=== PATIENT | female | born 1965 | race Caucasian/White ===

== ENCOUNTER 2017-11-07 06:34 | Inpatient (IN) ==
[2017-11-07] MEDS ORDERED: Vancomycin Inj 1 GM/200 ML PIGGYBACK IV.SIG ONE (06:52)
[2017-11-07] MEDS ORDERED: Piperacil/Tazo 3.375 GM Premix 50 ML IV.SIG ONE (06:52)
[2017-11-07] MEDS ORDERED: Sod Chloride 0.9% Inj 1,000 ML IV.SIG ONE (06:52)
--- NOTE | 2017-11-07 07:49 | ED ---
HPI General Chief complaint: Skin/Abscess/Foreign Body Stated complaint: Hand infection Time Seen by Provider: 11/07/17 07:37 Source: patient Mode of arrival: ambulatory Limitations: no limitations History of Present Illness HPI narrative: 51 y/o female presents after taking care of her dog for completion of her workup. She notes she can now stay in the hospital for antibiotics. She denies new complaints from recent visit. 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) Associated symptoms: denies other symptoms Related Data Home Medications Medication Instructions Recorded Confirmed methadone [Methadose] 110 mg PO DAILY 11/07/17 11/07/17 Allergies Allergy/AdvReac Type Severity Reaction Status Date / Time No Known Allergies Allergy Verified 11/07/17 02:28 Review of Systems ROS: all other systems reviewed are negative [facility] [place] Medical History Medical History Arthritis (Acute) Asthma (Acute) Chronic back pain (Acute) Heroin use (Acute) Surgical History Surgical History History of cholecystectomy (Acute) Social History Social History Substance History: Past History Second Hand Smoke Exposure: Yes Smoking Status: Current every day smoker Tobacco Type: Cigarettes How Often Do You Have a Drink Containing Alcohol: 2 to 4 times a month Recent Travel in [facility] within the Last 8 Weeks: No Recent Out of Country Travel within the Last 8 Weeks: No Immunization History Tetanus Immunization: Unsure Exam Narrative Exam Narrative: GENERAL: 51 y/o female in no apparent distress SKIN: Focused skin assessment warm/dry. HEAD: Atraumatic. Normocephalic. EYES: Pupils equal and round. No scleral icterus. No injection or drainage. ENT: No nasal bleeding or discharge. Mucous membranes pink and moist. NECK: Trachea midline. CARDIOVASCULAR: Regular rate and rhythm. RESPIRATORY: No accessory muscle use. MUSCULOSKELETAL: Pain with palpation of left hand with primrose strain noted with significant swelling, compartments soft. Good capillary refill NEUROLOGICAL: Awake and alert. Motor grossly within normal limits. Normal speech. PSYCHIATRIC: Appropriate mood and affect; insight and judgment normal. Course Reevaluation(s) Reevaluation #1: patient agrees to admit today Consultations Consultation #1: dr denney states keep npo and will see patient, admit to medicine Consultation #2: resident team agreees to admit Initial Documented Vital Signs Temperature 98.1 F 11/07/17 06:41 Pulse Rate 77 11/07/17 06:41 Respiratory Rate 16 11/07/17 06:41 Blood Pressure 109/56 L 11/07/17 06:41 Pulse Oximetry 95 11/07/17 06:41 Last Documented Vital Signs Temperature 98.1 F 11/07/17 06:41 Pulse Rate 61 11/07/17 07:53 Respiratory Rate 20 11/07/17 07:53 Blood Pressure 110/74 11/07/17 07:53 Pulse Oximetry 97 11/07/17 07:53 Medical Decision Making MDM Narrative Medical decision making narrative: Patient recently here in the emergency room with x-ray and I&D and tetanus given. Prior physician wanted patient to stay for blood work and antibiotics but she left before this could be done. This was discussed with prior physician that saw patient Dr. Ventura at change of shift who ordered an initial workup for this visit as well. Will follow workup and admit Medical Screen Exam Complete: Yes Emergency Medical Condition: Yes Differential Diagnosis Differential Diagnosis: cellulitis, abscess, foreign body Lab Data Lab results reviewed: Yes I reviewed the patient's lab results. Result diagrams: 11/07/17 07:40 11/07/17 07:40 Lab Results 11/07/17 11/07/17 11/07/17 Range/Units 07:40 07:40 07:40 WBC 11.8 H (4.0-11.0) th/mm3 RBC 4.66 (4.00-5.30) mil/mm3 Hgb 13.8 (11.6-15.3) gm/dL Hct 41.7 (35.0-46.0) % MCV 89.6 (80.0-100.0) fL MCH 29.7 (27.0-34.0) pg MCHC 33.1 (32.0-36.0) % RDW 13.1 (11.6-17.2) % Plt Count 275 (150-450) th/mm3 MPV 8.5 (7.0-11.0) fL Neut % (Auto) 76.0 H (16.0-70.0) % Lymph % (Auto) 16.3 (9.0-44.0) % Morrow % (Auto) 6.3 (0.0-8.0) % Eos % (Auto) 1.1 (0.0-4.0) % Baso % (Auto) 0.3 (0.0-2.0) % Neut # (Auto) 9.0 H (1.8-7.7) th/mm3 Lymph # (Auto) 1.9 (1.0-4.8) th/mm3 Morrow # (Auto) 0.7 (0.0-0.9) th/mm3 Eos # (Auto) 0.1 (0.0-0.4) th/mm3 Baso # (Auto) 0.0 (0.0-0.2) th/mm3 WBC Differential . Differential Comment Auto diff final PT 9.5 L (9.8-11.6) sec INR 0.9 Ratio APTT 26.9 (24.3-30.1) sec Sodium 137 (136-145) meq/L Potassium 3.5 (3.5-5.1) meq/L Chloride 100 (98-107) meq/L Carbon Dioxide 27.8 (21.0-32.0) meq/L Anion Gap 9 (5-15) meq/L BUN 13 (7-18) mg/dL Creatinine 0.72 (0.50-1.00) mg/dL Estimated GFR 85 L (>89) mL/min Random Glucose 93 (74-106) mg/dL Lactic Acid (0.4-2.0) mmol/L Calcium 8.8 (8.5-10.1) mg/dL Total Bilirubin 0.3 (0.2-1.0) mg/dL AST 14 L (15-37) U/L ALT 19 (10-53) U/L Alkaline Phosphatase 97 (45-117) U/L C-Reactive Protein 1.20 H (0.00-0.30) mg/dL Total Protein 7.5 (6.4-8.2) g/dL Albumin 3.5 (3.4-5.0) g/dL 08/29/18 Range/Units 08:12 WBC (4.0-11.0) th/mm3 RBC (4.00-5.30) mil/mm3 Hgb (11.6-15.3) gm/dL Hct (35.0-46.0) % MCV (80.0-100.0) fL MCH (27.0-34.0) pg MCHC (32.0-36.0) % RDW (11.6-17.2) % Plt Count (150-450) th/mm3 MPV (7.0-11.0) fL Neut % (Auto) (16.0-70.0) % Lymph % (Auto) (9.0-44.0) % Morrow % (Auto) (0.0-8.0) % Eos % (Auto) (0.0-4.0) % Baso % (Auto) (0.0-2.0) % Neut # (Auto) (1.8-7.7) th/mm3 Lymph # (Auto) (1.0-4.8) th/mm3 Morrow # (Auto) (0.0-0.9) th/mm3 Eos # (Auto) (0.0-0.4) th/mm3 Baso # (Auto) (0.0-0.2) th/mm3 WBC Differential Differential Comment PT (9.8-11.6) sec INR Ratio APTT (24.3-30.1) sec Sodium (136-145) meq/L Potassium (3.5-5.1) meq/L Chloride (98-107) meq/L Carbon Dioxide (21.0-32.0) meq/L Anion Gap (5-15) meq/L BUN (7-18) mg/dL Creatinine (0.50-1.00) mg/dL Estimated GFR (>89) mL/min Random Glucose (74-106) mg/dL Lactic Acid 0.8 (0.4-2.0) mmol/L Calcium (8.5-10.1) mg/dL Total Bilirubin (0.2-1.0) mg/dL AST (15-37) U/L ALT (10-53) U/L Alkaline Phosphatase (45-117) U/L C-Reactive Protein (0.00-0.30) mg/dL Total Protein (6.4-8.2) g/dL Albumin (3.4-5.0) g/dL Imaging Data Attestation: I personally reviewed and interpreted this imaging study as follows : Discharge Plan Discharge Disposition Patient Disposition: 30 Still Patient Discharge Condition Condition: Stable Discharge Details Diagnosis: Abscess of hand, left Physicians Team ED Provider: Wendy Odell Primary Care Provider: Primary Care Josey Bates Rxs /Orders / Referrals /Forms Prescriptions: No Action methadone [Methadose] 10 mg/mL Concentrate 110 mg PO DAILY RF: 0 Discharge Instructions Patient Printed Instructions: Incision and Drainage (DC) Discharge Interventions Interventions: Vital Signs Last Done: 11/07/17 07:53 Status ED Status: Pending Admission
[2017-11-07] MEDS ORDERED: Sod Chloride 0.9% Inj 1,000 ML IV.SIG SCH (08:00)
[2017-11-07] MEDS ORDERED: Vancomycin Inj 1,000 MG in Sodium Chlor 0.9% Inj 250 ML IV.SIG ONE (08:00)
[2017-11-07 08:25] LABS: Baso % (Auto) 0.3 % (0.0-2.0); Eos # (Auto) 0.1 th/mm3 (0.0-0.4); Eos % (Auto) 1.1 % (0.0-4.0); Hematocrit 41.7 % (35.0-46.0); Hemoglobin 13.8 gm/dL (11.6-15.3); Lymph # (Auto) 1.9 th/mm3 (1.0-4.8); Lymph % (Auto) 16.3 % (9.0-44.0); Mean Corpuscular HGB Conc 33.1 % (32.0-36.0); Mean Corpuscular Hemoglobin 29.7 pg (27.0-34.0); Mean Corpuscular Volume 89.6 fL (80.0-100.0); Mean Platelet Volume 8.5 fL (7.0-11.0); Mono # (Auto) 0.7 th/mm3 (0.0-0.9); Mono % (Auto) 6.3 % (0.0-8.0); Platelet Count 275 th/mm3 (150-450); Red Blood Count 4.66 mil/mm3 (4.00-5.30); Red Cell Distribution Width 13.1 % (11.6-17.2); White Blood Count 11.8 th/mm3 (4.0-11.0)
[2017-11-07 08:34] LABS: Activated Partial Thrombo Time 26.9 sec (24.3-30.1); INR 0.9 Ratio; Prothrombin Time 9.5 sec (9.8-11.6)
[2017-11-07 08:39] LABS: Albumin 3.5 g/dL (3.4-5.0); Anion Gap 9 meq/L (5-15); Aspartate Aminotransferase 14 U/L (15-37); Blood Urea Nitrogen 13 mg/dL (7-18); Calcium 8.8 mg/dL (8.5-10.1); Carbon Dioxide 27.8 meq/L (21.0-32.0); Chloride 100 meq/L (98-107); Glomerular Filtration Rate 85 mL/min (>89); Glucose,Random 93 mg/dL (74-106); Potassium 3.5 meq/L (3.5-5.1); Sodium 137 meq/L (136-145)
[2017-11-07 08:41] LABS: Alanine Aminotransferase 19 U/L (10-53)
[2017-11-07 08:42] LABS: Alkaline Phosphatase 97 U/L (45-117); Total Protein 7.5 g/dL (6.4-8.2)
[2017-11-07] MEDS ORDERED: Bisacodyl 10 MG Supp RECTAL PRN (09:30)
[2017-11-07] MEDS ORDERED: Acetaminophen 325 MG Tablet PO PRN (09:30)
[2017-11-07] MEDS ORDERED: Sod Chloride 0.9% Inj 1,000 ML IV.CONT SCH (09:30)
[2017-11-07] MEDS ORDERED: Temazepam 15 MG Capsule PO PRN (09:30)
[2017-11-07] MEDS ORDERED: Naloxone Inj 0.4 MG/ML Vial IV.PUSH PRN (09:34)
[2017-11-07] MEDS ORDERED: Morphine Inj 4 MG/ML Vial IV.PUSH PRN (09:34)
[2017-11-07] MEDS ORDERED: Ketorolac Inj 30 MG/ML (IVP) Vial IV.PUSH PRN ×2 (09:34)
--- NOTE | 2017-11-07 10:04 | P.HPFP ---
History of Present Illness Primary Care Physician: No Primary Care Physician <GayatriFredyIdania M - 11/07/17 15:23> No Primary Care Physician <ChrisJimenez Calvo - 11/07/17 10:04> Chief Complaint: Left hand pain <PerezJimenez Calvo - 11/07/17 10:04> History of Present Illness: 51-year-old female with a history of IV drug use presented to the ED for left hand wound. Patient states that on Sunday she was picking [place] berries and had small cuts on her hands and possibly provoked by 1 of the palm leaves. She states that she first noticed a small erythematous wound on the dorsal aspect of her left hand between the thumb and index finger. States that over the next several days the wound grew, became more red and painful and swelling has extended to the wrist. Denies any drainage. She denies any fevers but did have chills 2 days prior to admission. Denies any nausea or vomiting, diarrhea or constipation, chest pain, shortness of breath, headache or blurry vision. She does endorse some numbness in the thumb and index finger, but denies any restriction in range of motion. 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 She has been on methadone 110 mg p.o. daily for the last 5 years. Patient initially came to the ED at 4 in the morning, but after told she is being admitted she went home to arrange for care for her dog and then returned. Blood, wound cultures as well as a hand x-ray was performed at the initial encounter. <Jimenez Perez - 11/07/17 10:04> - Diagnosis (1) Cellulitis and abscess of hand (2) History of intravenous drug abuse (3) Nutrition, metabolism, and development symptoms <Idania Mendieta Curtis - 11/07/17 15:23> (1) Cellulitis and abscess of hand (2) History of intravenous drug abuse (3) Nutrition, metabolism, and development symptoms <PerezJimenez Calvo - 11/07/17 09:37> Inpatient Certification: I certify that the inpatient services were ordered in accordance with Medicare regulations governing the order. This includes certification that hospital inpatient services are reasonable and necessary and in the case of services not specified as inpatient-only under 42 CFR 419.22(n), that they are appropriately provided as inpatient services in accordance to with the 2-midnight benchmark under 43 CFR 412.3(e) <Idania Mendieta [facility] 11/07/17 15:23> I certify that the inpatient services were ordered in accordance with Medicare regulations governing the order. This includes certification that hospital inpatient services are reasonable and necessary and in the case of services not specified as inpatient-only under 42 CFR 419.22(n), that they are appropriately provided as inpatient services in accordance to with the 2-midnight benchmark under 43 CFR 412.3(e) <Jimenez Perez [facility] 11/07/17 10:04> Estimated Total Length of Stay (Days): [facility] Plans for Post Hospital Care: [facility]> Review of Systems Constitutional: Reports chills, Denies fever(s) <[facility] 11/07/17 10:04> Eyes: Denies blurry vision, Denies change in vision <[facility] 10:04> Ears, Nose, Mouth, and Throat: Denies post nasal drip, Denies sore throat < [facility] 11/07/17 10:04> Cardiovascular: Denies chest pain, Denies excessive sweating <[facility] 11/07/17 10:04> Respiratory: Denies shortness of breath, Denies wheezing <[facility] 11/07/17 10:04> Gastrointestinal: Denies abdominal pain, Denies black, tarry stools <[facility] 11/07/17 10:04> Genitourinary: Denies blood in urine, Denies urinary urgency <[facility] 11/07/17 10:04> Skin/Breast: Reports boil, Reports redness <[facility] 11/07/17 10:04> Neurologic: Denies dizziness, Denies localized weakness <[facility] 10:04> Hematologic/Lymphatic: Denies easy bleeding, Denies easy bruising <[facility] 11/07/17 10:04> PMFSH - History History Provided By: [facility] 10:04> - Medical History Medical History: Medical History (Last Reviewed 11/07/17 @ 09:46 by Jimenez Perez MD, R2) Arthritis Asthma Chronic back pain Heroin use <Idania Mendieta 11/07/17 15:23> Medical History (Last Reviewed 11/07/17 @ 09:46 by Jimenez Perez MD, R2) Arthritis Asthma Chronic back pain Heroin use <Jimenez Perez 11/07/17 10:04> - Surgical History Surgical History: Surgical History (Last Reviewed 11/07/17 @ 09:46 by Jimenez Perez MD, R2) History of cholecystectomy <Idania Mendieta 11/07/17 15:23> Surgical History (Last Reviewed 11/07/17 @ 09:46 by Jimenez Perez MD, R2) History of cholecystectomy <Jimenez Perez 11/07/17 10:04> - Tobacco History Second Hand Smoke Exposure: Yes <Jimenez Perez 11/07/17 10:04> Tobacco Use In Past 30 Days: Yes <Jimenez Perez 11/07/17 10:04> Smoking Status: Current every day smoker <Jimenez Perez 11/07/17 10:04> Tobacco Type: Cigarettes <Jimenez Perez 11/07/17 10:04> - Alcohol History How Often Do You Have a Drink Containing Alcohol: 2 to 4 times a month <Jimenez Perez 11/07/17 10:04> - Substance Use History Substance History: Past History <Jimenez Perez 11/07/17 10:04> - Travel History Recent Travel in the [facility] Within the Last 8 Weeks: No <Jimenez Perez 11/07 10:04> Recent Travel Out of the Country Within the Last 8 Weeks: No <Jimenez Perez 11/07/17 10:04> - Immunization History Tetanus Immunization: Unsure <Jimenez Perez 11/07/17 10:04> Medications and Allergies Allergies Allergy/AdvReac Type Severity Reaction Status Date / Time No Known Allergies Allergy Verified 11/07/17 02:28 <Idania Mendieta 11/07/17 15:23> Home Medications Medication Instructions Recorded Confirmed Type methadone [Methadose] 110 mg PO DAILY 11/07/17 11/07/17 History <Idania Mendieta 11/07/17 15:23> Active Medications: Active Medications Acetaminophen (Tylenol) 650 mg PO Q4H PRN PRN Reason: Temp > 100.4 Al Hydroxide/Mg Hydroxide (Milk Of Magnesia Liq) 30 ml PO Q12H PRN PRN Reason: Mild Constipation Bisacodyl (Dulcolax Supp) 10 mg RECTAL DAILY PRN PRN Reason: SEVERE CONSITIPATION Sodium Chloride (Ns Inj) 1,000 mls @ 0 mls/hr IV.SIG BOLUS [facility] Last Infusion: 11/07/17 09:45 Dose: Infused Sodium Chloride (Ns Inj) 1,000 mls @ 100 mls/hr IV.CONT .Q10H [facility] Last Admin: 11/07/17 11:22 Dose: Not Given Ketorolac Tromethamine (Toradol Inj) 30 mg IV.PUSH Q6H PRN PRN Reason: PAIN 6-10;IF UNABLE TO TAKE PO Stop: 11/12/17 09:33 Ketorolac Tromethamine (Toradol Inj) 15 mg IV.PUSH Q6H PRN PRN Reason: PAIN 3-5; IF UABLE TO TAKE PO Stop: 11/12/17 09:33 Lactulose (Lactulose Liq) 30 ml PO DAILY PRN PRN Reason: SEVERE CONSITIPATION Morphine Sulfate (Morphine Inj) 2 mg IV.PUSH Q3H PRN PRN Reason: BREAKTHROUGH PAIN Naloxone HCl (Narcan Inj) 0.4 mg IV.PUSH UNSCH PRN PRN Reason: SEE LABEL COMMENTS Ondansetron HCl (Zofran Inj) 4 mg IV.PUSH Q6H PRN PRN Reason: NAUSEA OR VOMITING Senna/Docusate Sodium (Brittani-Colace) 1 tab PO BID [facility] Sennosides (Senokot) 17.2 mg PO Q12H PRN PRN Reason: Moderate Constipation Temazepam (Restoril) 15 mg PO HS PRN PRN Reason: INSOMNIA <Idania Mendieta M - 11/07/17 15:23> Active Medications Acetaminophen (Tylenol) 650 mg PO Q4H PRN PRN Reason: Temp > 100.4 Al Hydroxide/Mg Hydroxide (Milk Of Magnesia Liq) 30 ml PO Q12H PRN PRN Reason: Mild Constipation Bisacodyl (Dulcolax Supp) 10 mg RECTAL DAILY PRN PRN Reason: SEVERE CONSITIPATION Sodium Chloride (Ns Inj) 1,000 mls @ 0 mls/hr IV.SIG BOLUS [facility] Last Admin: 11/07/17 08:31 Dose: 1,000 mls/hr Sodium Chloride (Ns Inj) 1,000 mls @ 100 mls/hr IV.CONT .Q10H [place] Lactulose (Lactulose Liq) 30 ml PO DAILY PRN PRN Reason: SEVERE CONSITIPATION Ondansetron HCl (Zofran Inj) 4 mg IV.PUSH Q6H PRN PRN Reason: NAUSEA OR VOMITING Senna/Docusate Sodium (Brittani-Colace) 1 tab PO BID [place] Sennosides (Senokot) 17.2 mg PO Q12H PRN PRN Reason: Moderate Constipation Temazepam (Restoril) 15 mg PO HS PRN PRN Reason: INSOMNIA <Jimenez Perez - 11/07/17 10:04> Exam Vital signs: Vital Signs 11/07/17 06:41 11/07/17 07:53 11/07/17 09:30 Temperature 98.1 F Pulse Rate 77 61 60 Respiratory Rate 16 20 16 Blood Pressure 109/56 L 110/74 120/77 Pulse Oximetry 95 97 98 Intake & Output 11/06/17 11/07/17 11/07/17 18:59 06:59 18:59 Intake Total 2300 / 2300 Balance 2300 / 2300 Weight 54.431 kg Intake: IV 2300 / 2300 Zosyn 3.375 GM Premix 50 ML @ 50 / 50 100 mls/hr IV.SIG ONCE ONE Rx#: [id number] NS Inj 1,000 ML @ Wide Open IV. 1000 / 1000 SIG BOLUS [place] Rx#:[id number] Vancomycin Inj 1,000 MG In NS 250 / 250 Inj 250 ML @ 250 mls/hr IV.SIG ONCE ONE Rx#:[id number] <Idania Mendieta - 11/07/17 15:23> Vital Signs 11/07/17 06:41 11/07/17 07:53 Temperature 98.1 F Pulse Rate 77 61 Respiratory Rate 16 20 Blood Pressure 109/56 L 110/74 Pulse Oximetry 95 97 Intake & Output 11/06/17 11/07/17 11/07/17 18:59 06:59 18:59 Intake Total 50 / 50 Balance 50 / 50 Weight 54.431 kg Intake: IV 50 / 50 Zosyn 3.375 GM Premix 50 ML @ 50 / 50 100 mls/hr IV.SIG ONCE ONE Rx#: [id number] <Jimenez Perez - 11/07/17 10:04> Narrative: GENERAL: 51 y/o female appearing uncomfortable and complaining that she is cold. SKIN: Focused skin assessment warm/dry. No axillary lymphadenopathy appreciated HEAD: Atraumatic. Normocephalic. EYES: Pupils equal and round. No scleral icterus. No injection or drainage. ENT: No nasal bleeding or discharge. Mucous membranes pink and moist. NECK: Trachea midline. CARDIOVASCULAR: Regular rate and rhythm. RESPIRATORY: No accessory muscle use. MUSCULOSKELETAL: Roughly 3 cm incision site on the dorsal aspect of the left hand between the index MCP and the thumb. Bloody discharge appreciated with no Alexa drain in place currently. There is significant erythema overlying the dorsal aspect of the hand along with swelling of soft tissue extending to the wrist. Good capillary refill and sensation of the digits intact NEUROLOGICAL: Awake and alert. Motor grossly within normal limits. Normal speech. PSYCHIATRIC: Appropriate mood and affect; insight and judgment normal. <Jimenez Perez - 11/07/17 10:04> Results - Labs Result diagrams: 11/07/17 07:40 11/07/17 07:40 <dIania Mendieta - 11/07/17 15:23> Abnormal lab results 11/07/17 11/07/17 11/07/17 Range/Units 07:40 07:40 07:40 WBC 11.8 H (4.0-11.0) th/mm3 Neut % (Auto) 76.0 H (16.0-70.0) % Neut # (Auto) 9.0 H (1.8-7.7) th/mm3 PT 9.5 L (9.8-11.6) sec Estimated GFR 85 L (>89) mL/min AST 14 L (15-37) U/L C-Reactive Protein 1.20 H (0.00-0.30) mg/dL Short CBC 11/07/17 Range/Units 07:40 WBC 11.8 H (4.0-11.0) th/mm3 Hgb 13.8 (11.6-15.3) gm/dL Hct 41.7 (35.0-46.0) % Plt Count 275 (150-450) th/mm3 [facility] 11/07/17 07:40 Sodium 137 Potassium 3.5 Chloride 100 Carbon Dioxide 27.8 BUN 13 Creatinine 0.72 Calcium 8.8 Liver Function 11/07/17 Range/Units 07:40 Total Bilirubin 0.3 (0.2-1.0) mg/dL AST 14 L (15-37) U/L ALT 19 (10-53) U/L Alkaline Phosphatase 97 (45-117) U/L Albumin 3.5 (3.4-5.0) g/dL <Idania Mendieta - 11/07/17 15:23> Abnormal lab results 11/07/17 11/07/17 11/07/17 Range/Units 07:40 07:40 07:40 WBC 11.8 H (4.0-11.0) th/mm3 Neut % (Auto) 76.0 H (16.0-70.0) % Neut # (Auto) 9.0 H (1.8-7.7) th/mm3 PT 9.5 L (9.8-11.6) sec Estimated GFR 85 L (>89) mL/min AST 14 L (15-37) U/L C-Reactive Protein 1.20 H (0.00-0.30) mg/dL Short CBC 11/07/17 Range/Units 07:40 WBC 11.8 H (4.0-11.0) th/mm3 Hgb 13.8 (11.6-15.3) gm/dL Hct 41.7 (35.0-46.0) % Plt Count 275 (150-450) th/mm3 [facility] 11/07/17 07:40 Sodium 137 Potassium 3.5 Chloride 100 Carbon Dioxide 27.8 BUN 13 Creatinine 0.72 Calcium 8.8 Liver Function 11/07/17 Range/Units 07:40 Total Bilirubin 0.3 (0.2-1.0) mg/dL AST 14 L (15-37) U/L ALT 19 (10-53) U/L Alkaline Phosphatase 97 (45-117) U/L Albumin 3.5 (3.4-5.0) g/dL <Jimenez Perez - 11/07/17 10:04> Caprini VTE Risk Assessment Caprini VTE Risk Assessment: Moderate/High Risk (score >= 2) <Jimenez Perez - 11/07/17 10:04> Caprini Risk Assessment Model: Point Value = 1 Point Value = 2 Point Value = 3 Point Value = 5 Age 41-60 Minor surgery BMI > 25 kg/m2 Swollen legs Varicose veins or History of unexplained or recurrent spontaneous Oral contraceptives or hormone replacement Sepsis (< 1 month) Serious lung disease, including pneumonia (< 1 month) Abnormal pulmonary function Acute myocardial infarction Congestive heart failure (< 1 month) History of inflammatory bowel disease Medical patient at bed rest Age 61-74 Arthroscopic surgery Major open surgery (> 45 min) Laparoscopic surgery (> 45 min) Malignancy Confined to bed (> 72 hours) Immobilizing plaster cast Central venous access Age >= 75 History of VTE Family history of VTE Factor V Leiden Prothrombin [id number] Lupus anticoagulant Anticardiolipin antibodies Elevated serum homocysteine Heparin-induced thrombocytopenia Other congenital or acquired thrombophilia Stroke (< 1 month) Elective arthroplasty Hip, pelvis, or leg fracture Acute spinal cord injury (< 1 month) <Idania Mendieta M - 11/07/17 15:23> Point Value = 1 Point Value = 2 Point Value = 3 Point Value = 5 Age 41-60 Minor surgery BMI > 25 kg/m2 Swollen legs Varicose veins or History of unexplained or recurrent spontaneous Oral contraceptives or hormone replacement Sepsis (< 1 month) Serious lung disease, including pneumonia (< 1 month) Abnormal pulmonary function Acute myocardial infarction Congestive heart failure (< 1 month) History of inflammatory bowel disease Medical patient at bed rest Age 61-74 Arthroscopic surgery Major open surgery (> 45 min) Laparoscopic surgery (> 45 min) Malignancy Confined to bed (> 72 hours) Immobilizing plaster cast Central venous access Age >= 75 History of VTE Family history of VTE Factor V Leiden Prothrombin [id number] Lupus anticoagulant Anticardiolipin antibodies Elevated serum homocysteine Heparin-induced thrombocytopenia Other congenital or acquired thrombophilia Stroke (< 1 month) Elective arthroplasty Hip, pelvis, or leg fracture Acute spinal cord injury (< 1 month) <Jimenez Perez - 11/07/17 10:04> Prophylaxis Regimen: Total Risk Factor Score Risk Level Prophylaxis Regimen 0-1 Low Early ambulation 2 Moderate Order ONE of the following: *Sequential Compression Device (SCD) *Heparin 5000 units SQ BID 3-4 Higher Order ONE of the following medications: *Heparin 5000 units SQ TID *Enoxaparin/Lovenox 40 mg SQ daily (WT < 150 kg, CrCl > 30 mL/min) *Enoxaparin/Lovenox 30 mg SQ daily (WT < 150 kg, CrCl > 10-29 mL/min) *Enoxaparin/Lovenox 30 mg SQ BID (WT < 150 kg, CrCl > 30 mL/min) AND/OR *Sequential Compression Device (SCD) 5 or more Highest Order ONE of the following medications: *Heparin 5000 units SQ TID (Preferred with Epidurals) *Enoxaparin/Lovenox 40 mg SQ daily (WT < 150 kg, CrCl > 30 mL/min) *Enoxaparin/Lovenox 30 mg SQ daily (WT < 150 kg, CrCl > 10-29 mL/min) *Enoxaparin/Lovenox 30 mg SQ BID (WT < 150 kg, CrCl > 30 mL/min) AND *Sequential Compression Device (SCD) <Idania Mendieta M - 11/07/17 15:23> Total Risk Factor Score Risk Level Prophylaxis Regimen 0-1 Low Early ambulation 2 Moderate Order ONE of the following: *Sequential Compression Device (SCD) *Heparin 5000 units SQ BID 3-4 Higher Order ONE of the following medications: *Heparin 5000 units SQ TID *Enoxaparin/Lovenox 40 mg SQ daily (WT < 150 kg, CrCl > 30 mL/min) *Enoxaparin/Lovenox 30 mg SQ daily (WT < 150 kg, CrCl > 10-29 mL/min) *Enoxaparin/Lovenox 30 mg SQ BID (WT < 150 kg, CrCl > 30 mL/min) AND/OR *Sequential Compression Device (SCD) 5 or more Highest Order ONE of the following medications: *Heparin 5000 units SQ TID (Preferred with Epidurals) *Enoxaparin/Lovenox 40 mg SQ daily (WT < 150 kg, CrCl > 30 mL/min) *Enoxaparin/Lovenox 30 mg SQ daily (WT < 150 kg, CrCl > 10-29 mL/min) *Enoxaparin/Lovenox 30 mg SQ BID (WT < 150 kg, CrCl > 30 mL/min) AND *Sequential Compression Device (SCD) <Jimenez Perez - 11/07/17 10:04> Assessment and Plan - Assessment (1) Cellulitis and abscess of hand Code(s): L03.119 - Cellulitis of unspecified part of limb; L02.519 - Cutaneous abscess of unspecified hand Status: Acute (2) History of intravenous drug abuse Code(s): Z87.898 - Personal history of other specified conditions Status: Acute (3) Nutrition, metabolism, and development symptoms Code(s): R63.8 - Other symptoms and signs concerning food and fluid intake Status: Acute <Idania Mendieta - 11/07/17 15:23> (1) Cellulitis and abscess of hand Code(s): L03.119 - Cellulitis of unspecified part of limb; L02.519 - Cutaneous abscess of unspecified hand Status: Acute Plan: 3-4 day history of worsening erythema and swelling on the left hand. 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 Lactic acid 0.8 -I&D performed on initial encounter with a [place] drain placed -Blood and wound cultures obtained -Patient initially left the hospital to care for dog and then returned -Received 1 dose of vancomycin and Zosyn upon return -Hand surgery consulted, requesting to keep patient n.p.o. and will determine antibiotic course after evaluation -IV Toradol pain scale with morphine for breakthrough pain -Consulting Occupational Therapy, Case management for possible wound care (2) History of intravenous drug abuse Code(s): Z87.898 - Personal history of other specified conditions Status: Acute Plan: Reported history of IV heroin use, patient states she last used 10 years ago Patient states she wants to avoid p.o. opiates as that was a [place] for her former drug use UDS pending (3) Nutrition, metabolism, and development symptoms Code(s): R63.8 - Other symptoms and signs concerning food and fluid intake Status: Acute Plan: N.p.o. for possible surgery Normal saline at 100 mL/h Zofran as needed Replace electrolytes as needed SCDs for DVT prophylaxis <Jimenez Perez - 11/07/17 09:37> - Assessment and Plan 51-year-old female with a history of IV drug use presented with a left hand abscess. Initial I&D performed in the ED with cultures pending. Received vancomycin and Zosyn 1 and hand surgery was consulted. Requested keep patient n.p.o. with likely surgery today. Antibiotic regimen to be determined after surgery. Disposition: Possibly home tomorrow. May need wound care arranged <Jimenez Perez - 11/07/17 10:04> Discussed Condition With: Dr. Odell <Jimenez Perez - 11/07/17 10:04> - Attending Attestation The exam, history, and the medical decision-making described in the above note were completed with the assistance of the resident physician. I reviewed and agree with the findings presented. I attest that I had a [id number] encounter with the patient on the same day, and personally performed and documented my assessment and findings in the medical record. <Idania Mendieta - 11/07/17 15:23>
--- NOTE | 2017-11-07 15:57 | P.AMA ---
AMA Note - AMA Note AMA Statement: Patient Neha Alfred has decided to leave the hospital against medical advice. This patient has the capacity to refuse care and understands the risks of leaving, including permanent disability and/or , and has had an opportunity to ask questions about his/her condition. The patient has been informed that he/she may return for care at any time, and follow up has been arranged/advised. Physician-patient relationship severed and we will not take this patient back on any family medicine residency service. - AMA Note Discharge Disposition: Left Against Medical Advice Patient Condition on Discharge: Stable
[2017-11-07] MEDS ORDERED: Piperacil/Tazo 3.375 GM Premix 50 ML IV.SIG SCH (16:00)
[2017-11-07] MEDS ORDERED: Senna/Docusate Sodium 8.6/50 MG Tablet PO SCH (21:00)
== END 2017-11-07 11:23 | disposition left against medical advice (07) ==
LOC: NEPC 06:34 → NEDA 09:13
PROVIDERS: ADMIT Family Medicine; ATTEND Family Medicine